=== PATIENT | female | born 1955 | race Caucasian/White ===

== ENCOUNTER 2018-07-11 10:58 | Day surgery (SDC) | payer OTHER ==
--- NOTE | 2018-07-10 08:24 | GHP ---
DATE OF SURGERY: 07/11/2018 CHIEF COMPLAINT: Left ankle and forefoot pain. HISTORY OF PRESENT ILLNESS: Patient is a 63-year-old with a history of progressive left ankle pain and forefoot deformity. She is having limitations in her ambulatory status secondary to her symptoms. PAST MEDICAL HISTORY: Positive for rheumatoid arthritis. PAST SURGICAL HISTORY: Positive for a gluteus medius repair and other orthopedic surgery. SOCIAL HISTORY: Negative for tobacco use. FAMILY HISTORY: Noncontributory. MEDICINES: Include amlodipine, azathioprine, celecoxib, duloxetine, folic acid , oxycodone (postop pain) and Remicade. ALLERGIES: She lists no drug allergies. PHYSICAL EXAMINATION: GENERAL: She is alert and oriented x3. No acute distress. HEENT: Head is normocephalic. Pupils equal, round, reactive to light. Extraocular eye movements intact. NECK: Supple. No JVD or lymphadenopathy. CHEST: Clear to auscultation. HEART: Regular rate and rhythm. No murmurs or gallops. ABDOMEN: Soft, nontender, nondistended. GENITAL/RECTAL/BREASTS: were deferred. EXTREMITIES: Exam reveals moderate swelling in her left ankle with focal tenderness. She has hypermobile hallux valgus deformity. ASSESSMENT: 1. Left advanced ankle arthrosis. 2. Left hypermobile hallux valgus/symptomatic bunion. PLAN: The patient is scheduled for a left total ankle arthroplasty and modified Lapidus procedure. /[id number]/MODL MTDD
[2018-07-11] MEDS ORDERED: LR 1,000 ML IV ONE (11:48)
[2018-07-11] MEDS ORDERED: BUPIVACAINE 0.5% 30 ML SDV ONE (11:54)
[2018-07-11] MEDS ORDERED: MIDAZOLAM 2 MG/2 ML VIAL ONE (11:54)
[2018-07-11] MEDS ORDERED: fentaNYL 100 MCG/2 ML INJ ONE ×2 (11:54→14:31)
[2018-07-11] MEDS ORDERED: ceFAZolin 2 GM/DEXTROSE 100 ML IV ONE (12:13)
[2018-07-11] MEDS ORDERED: PROPOFOL/EMULSION 500 MG/50 ML BOTTLE IV ONE (12:13)
[2018-07-11] MEDS ORDERED: PROPOFOL 200 MG/20 ML VIAL ONE (12:14)
--- NOTE | 2018-07-11 12:15 | PDHPUP ---
History & Physical Update H&P update statement: This history and physical update is based on an assessment of the patient which was completed after admission or registration (within 24 hours), but prior to the surgery/procedure. H&P update: H&P reviewed & patient examined, no change in patient's condition since H&P completed
--- NOTE | 2018-07-11 12:17 | POSTOPPROG ---
Post Op Note Date of Operation: 07/11/18 Surgeon: Shoaib Waters Maintenance Assistant: Tomas Anesthesia: GET(General Endotracheal) Pre-op Diagnosis: L ankle arthrosis, hallux valgus Post-op Diagnosis: same Procedure: L TAA, Lapidus Inf/Abcess present in the surg proc area at time of surgery?: No EBL: 50-100
[2018-07-11] MEDS ORDERED: DEXAMETHASONE 4 MG/ML VIAL ONE ×2 (14:25)
[2018-07-11] MEDS ORDERED: ONDANSETRON 4 MG/2 ML VIAL ONE (14:25)
[2018-07-11] MEDS ORDERED: ROPIVACAINE HCL 150 MG/30 ML INJ ONE ×2 (14:25)
[2018-07-11] MEDS ORDERED: ROCURONIUM 50 MG/5 ML VIAL ONE (14:25)
[2018-07-11] MEDS ORDERED: PROMETHAZINE HCL 25 MG/ML INJ IVP PRN (14:51)
[2018-07-11] MEDS ORDERED: HYDROCODONE/APAP 5/325 TAB PO PRN (14:51)
[2018-07-11] MEDS ORDERED: ONDANSETRON 4 MG/2 ML VIAL IVP PRN ×2 (14:51→15:07)
[2018-07-11] MEDS ORDERED: TEMAZEPAM 15 MG CAP PO PRN (14:51)
[2018-07-11] MEDS ORDERED: oxyCODONE IR 5 MG TAB PO PRN (14:57)
[2018-07-11] MEDS ORDERED: D5W 1/2 NS W/ 20 KCl/L 1,000 ML IV SCH (15:00)
[2018-07-11] MEDS ORDERED: NALOXONE HCL 0.4 MG/ML INJ IVP PRN (15:07)
[2018-07-11] MEDS ORDERED: fentaNYL 100 MCG/2 ML INJ IVP PRN (15:07)
[2018-07-11] MEDS ORDERED: ALBUTEROL 3 ML DEYVIAL IH PRN (15:07)
[2018-07-11] MEDS ORDERED: NS 500 ML IV PRN (15:07)
[2018-07-11] MEDS ORDERED: HYDROmorphONE/DILAUDID 2 MG/ML INJ IVP PRN (15:07)
--- NOTE | 2018-07-11 15:12 | POSTANESTH ---
Post Anesthetic Evaluation Cardiovascular Status: Normal, Stable Respiratory Status: Normal, Stable Level of Consciousness/Mental Status: Can Participate in Eval, Mildly Sleepy, Arousable Pain Control: Adequate, Prn Tx Ordered Nausea/Vomiting Control: Adequate, Prn Tx Ordered Complications Possibly Related to Anesthesia: None Noted
--- NOTE | 2018-07-11 15:12 | PDANEPAE ---
ANE History of Present Illness Left Ankle ANE Past Medical History - Cardiovascular History Hx Hypertension: Yes Hx Arrhythmias: No Hx Chest Pain: No Hx Coronary Artery / Peripheral Vascular Disease: No Hx CHF / Valvular Disease: No Hx Palpitations: No - Pulmonary History Hx COPD: No Hx Asthma/Reactive Airway Disease: No Hx Recent Upper Respiratory Infection: No Hx Oxygen in Use at Home: No Hx Sleep Apnea: No Sleep Apnea Screening Result - Last Documented: Negative - Neurologic History Hx Cerebrovascular Accident: No Hx Seizures: No Hx Dementia: No Neurologic History Comment: slight numbness in right hand since cervical surgery. radiculopathy lower back - Endocrine History Hx Diabetes: No - Renal History Hx Renal Disorders: No - Liver History Hx Hepatic Disorders: No - Neurological & Psychiatric Hx Hx Neurological and Psychiatric Disorders: No - Cancer History Hx Cancer: Yes Cancer History Comment: facial skin cancers removed - Congenital Disorder History Hx Congenital Disorders: No - GI History Hx Gastrointestinal Disorders: No - Other Health History Other Health History: rheumatoid arthritis - denies any neck pain. wears glasses. "crepey" skin. chronic pain to lower back and left ankle - Chronic Pain History Chronic Pain: Yes (low back, left ankle) - Surgical History Prior Surgeries: bilateral STEPHANY. left TKA. left hip tendon reattachment. lumbar fusion L3-L5. cervical fusion ANE Review of Systems Review of Systems: - Exercise capacity METS (RN): 4 METS ANE Patient History - Allergies Allergies/Adverse Reactions: No Known Allergies Allergy (Verified 06/23/18 17:59) - Home Medications Home Medications: Adult One Daily Multivit Tab 06/23/18 [Last Taken Unknown] Amlodipine Besylate/Benazepril [Amlodipine-Benazepril 5-20 mg] 06/23/18 [Last Taken 07/11/18] Calcium 06/23/18 [Last Taken 07/11/18] Folic Acid [Folic Acid 1 MG (*)] 06/23/18 [Last Taken 07/10/18] Vitamin D3 06/23/18 [Last Taken 07/11/18] azaTHIOprine [Imuran 50 mg (*)] 06/23/18 [Last Taken 07/11/18] celeCOXIB [CeleBREX] 06/23/18 [Last Taken 07/07/18] inFLIXimab [Remicade Inj 100 mg (*)] 06/23/18 [Last Taken 06/20/18] predniSONE [Prednisone] 06/23/18 [Last Taken 07/11/18] - NPO status NPO Since - Liquids (Date): 07/11/18 NPO Since - Liquids (Time): 09:30 NPO Since - Solids (Date): 07/10/18 NPO Since - Solids (Time): 22:30 - Smoking Hx Smoking Status: Never smoked - Family Anes Hx Family Hx Anesthesia Complications: none ANE Labs/Vital Signs - Vital Signs Blood Pressure: 123/73 Heart Rate: 93 Respiratory Rate: 16 O2 Sat (%): 95 Height: 160.02 cm Weight: 74.389 kg ANE Physical Exam - Airway Neck exam: FROM Mallampati Score: Class 2 Mouth exam: normal dental/mouth exam - Pulmonary Pulmonary: clear to auscultation - Cardiovascular Cardiovascular: regular rate and rhythym - ASA Status ASA Status: II ANE Anesthesia Plan Anesthesia Plan: general endotracheal anesthesia Regional Anesthesia: continuous NB, adductor canal FNB
[2018-07-11] MEDS ORDERED: BUPIVACAINE 0.25% 270 ML in PUMP SET 1 EA NB SCH (15:15)
[2018-07-11] MEDS ORDERED: ROPIVACAINE 0.2% 1,100 MG in PUMP SET 1 EA NB SCH (16:00)
[2018-07-11 17:36] VITALS: BP 125/80
[2018-07-11] MEDS ORDERED: ceFAZolin 2 GM/DEXTROSE 100 ML IV SCH (20:30)
--- NOTE | 2018-07-11 21:11 | GOP ---
DATE OF OPERATION: 07/11/2018 SURGEON: Shoaib Waters MD AUTOMATIC SPINNING LATHE SETTER: Deo Parker PA-C, who was necessary for the completion of the surgery. ANESTHESIA: General plus indwelling popliteal and saphenous nerve blocks performed by the anesthesio logist at my request for postoperative pain management. PREOPERATIVE DIAGNOSIS: 1. Left ankle arthrosis. 2. Left hypermobile hallux valgus/symptomatic bunion. POSTOPERATIVE DIAGNOSIS: 1. Left ankle arthrosis. 2. Left hypermobile hallux valgus/symptomatic bunion. PROCEDURE PERFORMED: 1. Left implant total ankle arthroplasty. 2. Left modified Lapidus procedure (1st tarsometatarsal arthrodesis, bunionectomy, distal soft tissu e reconstruction). 3. Intraoperative use fluoroscopy. FINDINGS: ESTIMATED BLOOD LOSS: Less than 100 mL. INDICATIONS: The patient is a 63-year-old with history of rheumatoid arthritis with progressive ankl e pain. She is having significant limitations in her activity. She was additionally having pain and deformity from a symptomatic bunion. Based on her persistence of symptoms, refractory to nonoperati ve treatment, she is interested in pursuing operative treatment. From an operative standpoint, optio ns for end-stage ankle arthritis including implant, total ankle arthroplasty, and arthrodesis were di scussed in detail with the anticipated risks and benefits of both. The patient elected to pursue a t otal ankle arthroplasty. The patient acknowledged she understood the potential risks of the operatio n including, but not limited to bleeding, infection, neurovascular damage, loss of limb function, mal union, nonunion, need for hardware removal, implant failure requiring revision or removal and convers ion to an arthrodesis and anesthetic risks. She acknowledged she understood the potential risks of t he planned procedure and postoperative plan well, and had all questions answered prior to surgery. S he gave her consent for the operative procedure. DESCRIPTION OF PROCEDURE: The patient was brought in the operating room after IV antibiotics were ad ministered. Indwelling popliteal and saphenous nerve blocks performed by the anesthesiologist at my request for postoperative pain management. General anesthetic was administered. A tourniquet was pl aced on the left thigh, bump underneath the left hip and shoulder, and the left lower extremity was p repped and draped in standard sterile fashion. After marking the incisions and Cheng wrap exsanguinati on, tourniquet was inflated to 250. An anterior approach to the ankle was utilized for exposure. Sk in and subcutaneous tissue were sharply incised. Sharp dissection was carried through the extensor r etinaculum. The interval between the tibialis anterior and the extensor hallucis longus was utilized for exposure. The capsule was longitudinally split and reflected medially and laterally. End-stage arthritic changes were noted. The cutting jig from the [employer] total ankle was applied. Af ter correcting optimally for height, flexion, extension, rotation, and medial and lateral translation , the cutting jig was pinned into place. After protecting the medial and lateral aspects of the tibi al cut with guide pins, a saw was utilized to create the tibial plafond cut and medial gutter cut. T he tibial cutting jig was removed. The cut portions of bone were completed with the saw with the jig removed and removed with osteotome and rongeur. The talar dome cutting guide was applied and with d istraction through the cutting jig and the ankle held in a neutral dorsiflexed position, the cutting block was pinned into place. The plafond cut was then made with a saw. The posterior chamfer cuttin g guide was placed and position confirmed fluoroscopically. After pinning this into position, fresco artist ior chamfer cut was made with a saw. Maintaining the same guide pins, the anterior chamfer cutting g uide was then placed. The milling drill bit was then utilized to create the anterior chamfer cut. A size 1 talar implant was impacted into place and found to have excellent fit. After templating and checking with the anterior-posterior guide on the tibia, a size 1 tibial trial was impacted into plac e, along with a 9 mm polyethylene implant. This obtained excellent stability and fit. A very favora ble range of motion was additionally achieved. The tibial keel cuts were then drilled through the ti bial trial. The trial implants were then removed. A definitive size 1 tibia was impacted into place . Similarly, a size 1 talus was then impacted into place and a 9 mm polyethylene insert was inserted . Excellent positioning was confirmed both fluoroscopically and clinically. Attention was directed toward closure. The extensor retinaculum was closed with 2-0 Vicryl suture in interrupted fashion. Subcutaneous tissue closed with 3-0 Vicryl suture in interrupted fashion. Skin closed with 4-0 nylon interrupted sutures. Attention was then directed towards the modified Lapidus procedure. A longitudinal incision was made along the dorsal medial aspect of the midfoot and forefoot leaving a favorable skin bridge with the ankle incision. The skin and subcutaneous tissue were sharply incised. Sharp dissection was carried medial to the EHL tendon. Dissection was carried down to the 1st TMT joint. Utilizing the chisel a nd rongeur, all articular surfaces of the 1st TMT and inner metatarsal base was denuded. In preparat ion for arthrodesis, subchondral bone was drilled multiple times with a 2 mm drill bit. The lateral facet of the medial cuneiform was preferentially taken down with a chisel. A 4 mm bur was utilized t o create a trough on the dorsal aspect of the 1st metatarsal and medial cuneiform for screw placement . A longitudinal incision was made along the medial aspect of the 1st MTP joint. Taking care to avoid damage to the digital nerve. The capsule was longitudinally incised and reflected dorsally and plant raymundo. The bony prominence was on the 1st metatarsal head medially, it was removed with a saw. A sma ll incision was made in the 1st interdigital space. Skin and subcutaneous tissue were sharply incise d. Sharp dissection was carried down to the lateral aspect of the 1st MTP joint. The capsule was tr ansversely opened and the sesamoid metatarsal ligaments were released both proximally and distally wi th tenotomy scissors. The 1st metatarsal was optimally reduced and stabilized with 3.5 mm cortical s crews placed in lag fashion from the dorsal aspect of the 1st metatarsal into the plantar aspect of t he medial cuneiform, dorsal aspect of the medial cuneiform, into the plantar aspect of the 1st metata rsal and the medial aspect of the 1st metatarsal into the 2nd metatarsal base. Fluoroscopic views co nfirmed favorable hardware placement and arthrodesis position. Capsulorrhaphy was then performed. A V-shaped portion of the capsule on the plantar aspect of the 1st MTP was removed sharply. The capsu le was then tightened with 0 PDS suture. Attention was directed towards closure. The deep tissue was closed with 2-0 Vicryl suture in interru pted fashion. Subcutaneous tissue closed with 3-0 Vicryl suture in interrupted fashion. Skin closed with 4-0 nylon interrupted suture. The wounds were dressed with sterile Adaptic, 4 x 4 and Webril, and the leg was placed in a below-knee splint. The patient tolerated the procedure well and was take n to the recovery room, extubated in stable condition postoperatively. All sponge, needle, and instr ument counts were reported as being correct. DRAINS: None. COMPLICATIONS: None. PLAN: The patient would potentially go home versus be admitted for overnight observation. She will be nonweightbearing on her operative extremity. /[id number]/MODL
[2018-07-12] MEDS ORDERED: ENOXAPARIN 40 MG/0.4 ML SYR SC SCH (09:00)
== END 2018-07-11 17:40 | disposition home or self-care (01) ==
LOC: FSGY 10:58 → UNDOADMOB 10:58 → F3E 10:58 → EDSTATUS 12:30 → UNDODISOB 17:40 → FSGY 17:40
PROVIDERS: ATTEND Orthopaedic Surgery Foot and Ankle Surgery
PROC: 0SGL04Z Fusion of Left Tarsometatarsal Joint with Internal Fixation Device, Open Approach (ICD-10-PCS; principal; 2018-07-11 12:00)
PROC: 0QSP0ZZ Reposition Left Metatarsal, Open Approach (ICD-10-PCS; principal; 2018-07-11 12:00)
PROC: 0SRG0JZ Replacement of Left Ankle Joint with Synthetic Substitute, Open Approach (ICD-10-PCS; principal; 2018-07-11 12:00)
PROC: 0QBP0ZZ Excision of Left Metatarsal, Open Approach (ICD-10-PCS; principal; 2018-07-11 12:00)
DX: M19.072 Primary osteoarthritis, left ankle and foot (principal); M20.12 Hallux valgus (acquired), left foot; M21.612 Bunion of left foot
CPT/HCPCS: C1713; J0690; J1100; J2250; J2405; J2704; J2795; J3010